=== PATIENT | female | born 1960 | race Two or more races ===

== ENCOUNTER 2017-12-27 05:46 | Inpatient (IN) | payer SELFPAY ==
[~2017-12-27] VITALS: Ht 149.9 cm; Wt 56.4 kg
[2017-12-27] MEDS ORDERED: GLUCOPHAGE500 MG PO (09:49)
[2017-12-27 09:55] VITALS: BP 142/79; BMI 24.5
[2017-12-27 11:33] LABS: BASOPHILS 0.7 % (0-2); EOSINOPHILS 18.7 % (0-7); HEMATOCRIT 30.7 % (36.0-48.0); HEMOGLOBIN 10.6 g/dL (12-16); IMMATURE GRANULOCYTES 0.1 % (0-5); LYMPHOCYTES 25.4 % (15-50); MCH 27.7 pg (26.0-34.0); MCHC 34.5 g/dL (31.0-37.0); MCV 80.4 fL (80.0-100.0); MEAN PLATELET VOLUME 11.1 fL (7.4-10.4); MONOCYTES 3.7 % (2-11); NEUTROPHILS 51.4 % (40-80); PLATELET COUNT 161 10x3/uL (130-400); RBC 3.82 10x6/uL (4.00-5.40); WBC 6.8 10x3/uL (4.8-10.8)
[2017-12-27 11:43] VITALS: BP 162/82
[2017-12-27 11:45] LABS: ALBUMIN 2.2 g/dL (3.4-5.0); ALKALINE PHOSPHATASE 130 U/L (46-116); ALT (SGPT) 16 U/L (10-68); CALC OSMOLALITY 295 mosm/kg (275-300); CALCIUM 8.6 mg/dL (8.5-10.1); CARBON DIOXIDE 27.8 mmol/L (21.0-32.0); CHLORIDE - SERUM 106 mmol/L (98-107); CREATININE - SERUM 1.2 mg/dL (0.6-1.3); GLUCOSE 334 mg/dL (74-106); SODIUM 140 mmol/L (136-145); UREA NITROGEN 24 mg/dL (7-18); eGFR NON AFRICAN AMERICAN 49 mL/min (90-120)
[2017-12-27 12:00] LABS: CHOL - HDL RATIO 5.5 ratio (2.3-4.1); CHOLESTEROL, TOTAL 306 mg/dL (0-200); CKMB 1.6 U/L (0.0-3.6); CREATINE KINASE 45 UL (21-215); HDL CHOLESTEROL 56 mg/dL (32-96); LDL CHOLESTEROL 196 mg/dL (0-100); LDL-HDL RATIO 3.5 ratio (1.5-3.5); MAGNESIUM - SERUM 1.9 mg/dL (1.8-2.4); TRIGLYCERIDE 274 mg/dL (30-200)
[2017-12-27 13:50] LABS: % SATURATION 17 % (15-55); IRON 40 ug/dl (35-150); TOTAL IRON BIND CAPACITY 223 ug/dl (260-445); UNSAT IRON BIND CAPACITY 183 ug/dl (150-375)
[2017-12-27 15:17] VITALS: BP 145/66
[2017-12-27 16:05] LABS: APPEARANCE HAZY (CLEAR); BILIRUBIN NEGATIVE (NEGATIVE); COLOR YELLOW (YELLOW); GLUCOSE 1000 mg/dL (NEGATIVE); KETONE NEGATIVE (NEGATIVE); NITRITE POSITIVE (NEGATIVE); PROTEIN 3+ mg/dL (NEGATIVE); SPECIFIC GRAVITY 1.005 (1.005-1.020); UROBILINOGEN NORMAL (NORMAL)
[2017-12-27 16:08] LABS: CREATININE - URINE 43.7 mg/dL (30-125)
[2017-12-27 16:16] LABS: RED CELLS - URINE RARE /hpf (0-5); WHITE CELLS - URINE 0-5 /hpf (0-5)
[2017-12-27 16:17] LABS: BACTERIA MANY /hpf (NONE SEEN); EPITHELIAL CELLS 0-5 /hpf (0-5); TRIPLE PHOSPHATE CRYSTALS 0-5 /hpf (NONE SEEN)
[2017-12-27 17:22] LABS: CREATINE KINASE 42 UL (21-215)
[2017-12-27 17:23] LABS: TROPONIN-I 0.103 ng/mL (0.000-0.060)
[2017-12-27 20:00] VITALS: BP 101/55
[2017-12-27 23:45] LABS: CKMB 1.2 U/L (0.0-3.6); CREATINE KINASE 41 UL (21-215); TROPONIN-I 0.118 ng/mL (0.000-0.060)
[2017-12-28] VITALS: BP 92/38
[2017-12-28 04:00] VITALS: BP 101/56
[2017-12-28 06:41] LABS: BASOPHILS 1.2 % (0-2); EOSINOPHILS 14.9 % (0-7); HEMATOCRIT 30.1 % (36.0-48.0); HEMOGLOBIN 9.9 g/dL (12-16); IMMATURE GRANULOCYTES 0.1 % (0-5); MCH 27.3 pg (26.0-34.0); MCHC 32.9 g/dL (31.0-37.0); MCV 82.9 fL (80.0-100.0); MEAN PLATELET VOLUME 10.9 fL (7.4-10.4); MONOCYTES 5.8 % (2-11); PLATELET COUNT 157 10x3/uL (130-400); RBC 3.63 10x6/uL (4.00-5.40); RDW 14.2 % (11.5-14.5); WBC 6.9 10x3/uL (4.8-10.8)
[2017-12-28 07:03] LABS: ANION GAP 12.3 mmol/L (8-16); CALCIUM 8.5 mg/dL (8.5-10.1); CARBON DIOXIDE 25.3 mmol/L (21.0-32.0); POTASSIUM - SERUM 4.6 mmol/L (3.5-5.1)
[2017-12-28 07:04] LABS: CREATININE - SERUM 1.6 mg/dL (0.6-1.3)
[2017-12-28 08:44] VITALS: BP 112/61
[2017-12-28 11:42] VITALS: BP 145/71
[2017-12-28 15:23] VITALS: BP 164/65
[2017-12-28 20:00] VITALS: BP 132/55
[2017-12-29 04:00] VITALS: BP 148/74
[2017-12-29 06:22] LABS: BASOPHILS 1.2 % (0-2); HEMOGLOBIN 9.8 g/dL (12-16); IMMATURE GRANULOCYTES 0.3 % (0-5); LYMPHOCYTES 26.3 % (15-50); MCH 27.1 pg (26.0-34.0); MCHC 32.7 g/dL (31.0-37.0); MCV 83.1 fL (80.0-100.0); MEAN PLATELET VOLUME 10.7 fL (7.4-10.4); MONOCYTES 6.9 % (2-11); NEUTROPHILS 44.3 % (40-80); PLATELET COUNT 143 10x3/uL (130-400); RBC 3.61 10x6/uL (4.00-5.40); RDW 14.2 % (11.5-14.5); WBC 6.7 10x3/uL (4.8-10.8)
[2017-12-29 06:31] LABS: CALCIUM 8.4 mg/dL (8.5-10.1); CARBON DIOXIDE 27.1 mmol/L (21.0-32.0); CREATININE - SERUM 1.2 mg/dL (0.6-1.3); POTASSIUM - SERUM 4.1 mmol/L (3.5-5.1)
[2017-12-29 08:19] VITALS: BP 116/65
[2017-12-29 10:50] VITALS: BMI 24.4
[2017-12-29 12:00] VITALS: BP 141/74
[2017-12-29 15:00] VITALS: BP 117/62
[2017-12-29 18:46] VITALS: Ht 149.9 cm; Wt 56.4 kg
[2017-12-29 20:50] VITALS: BP 124/71
[2017-12-30 01:02] VITALS: BP 114/55
[2017-12-30 05:28] LABS: BASOPHILS 1.2 % (0-2); EOSINOPHILS 17.8 % (0-7); HEMATOCRIT 29.7 % (36.0-48.0); HEMOGLOBIN 9.6 g/dL (12-16); IMMATURE GRANULOCYTES 0.2 % (0-5); LYMPHOCYTES 26.6 % (15-50); MCH 27.1 pg (26.0-34.0); MCHC 32.3 g/dL (31.0-37.0); MCV 83.9 fL (80.0-100.0); MEAN PLATELET VOLUME 11.1 fL (7.4-10.4); MONOCYTES 7.7 % (2-11); NEUTROPHILS 46.5 % (40-80); PLATELET COUNT 138 10x3/uL (130-400); RBC 3.54 10x6/uL (4.00-5.40); RDW 14.1 % (11.5-14.5); WBC 6.6 10x3/uL (4.8-10.8)
[2017-12-30 05:30] VITALS: BP 94/66
[2017-12-30 05:41] LABS: APTT 30.9 SECONDS (22.8-39.4); INR 1.06 (0.85-1.17); PROTIME 13.4 SECONDS (11.6-15.0)
[2017-12-30 05:50] LABS: ANION GAP 11.6 mmol/L (8-16); BILIRUBIN - DIRECT 0.03 mg/dL (0.00-0.30); BILIRUBIN - INDIRECT 0.1 mg/dL (0.00-1.00); BILIRUBIN - TOTAL 0.13 mg/dL (0.2-1.3); CALCIUM 8.6 mg/dL (8.5-10.1); CARBON DIOXIDE 27.5 mmol/L (21.0-32.0); CREATININE - SERUM 1.5 mg/dL (0.6-1.3); POTASSIUM - SERUM 4.1 mmol/L (3.5-5.1); PROTEIN - SERUM 5.6 g/dL (6.4-8.2)
[2017-12-30 07:43] VITALS: BP 118/72
[2017-12-30 08:19] LABS: FOLATE (FOLIC ACID) - SERUM >20.0 ng/mL (>3.0)
[2017-12-30 15:50] VITALS: BP 109/66
[2017-12-30 20:00] VITALS: BP 154/73
== END 2017-12-30 21:40 | disposition left against medical advice (07) | DRG 699 ==
LOC: D.M2 05:46
PROVIDERS: Internal Medicine Gastroenterology; Internal Medicine Nephrology
PROC: 0DB78ZX Excision of Stomach, Pylorus, Via Natural or Artificial Opening Endoscopic, Diagnostic (ICD-10-PCS; 2017-12-30)
PROC: 0DB98ZX Excision of Duodenum, Via Natural or Artificial Opening Endoscopic, Diagnostic (ICD-10-PCS; principal; 2017-12-30 05:42)
DX: E11.21 Type 2 diabetes mellitus with diabetic nephropathy (principal); K92.2 Gastrointestinal hemorrhage, unspecified; N39.0 Urinary tract infection, site not specified; I08.2 Rheumatic disorders of both aortic and tricuspid valves; E11.22 Type 2 diabetes mellitus with diabetic chronic kidney disease; I12.9 Hypertensive chronic kidney disease with stage 1 through stage 4 chronic kidney disease, or unspecified chronic kidney disease; N18.3 Chronic kidney disease, stage 3 (moderate); F41.9 Anxiety disorder, unspecified; D50.9 Iron deficiency anemia, unspecified; E88.09 Other disorders of plasma-protein metabolism, not elsewhere classified; K44.9 Diaphragmatic hernia without obstruction or gangrene; K29.70 Gastritis, unspecified, without bleeding; E11.43 Type 2 diabetes mellitus with diabetic autonomic (poly)neuropathy; K31.84 Gastroparesis; E11.65 Type 2 diabetes mellitus with hyperglycemia

== ENCOUNTER 2018-12-10 02:20 | Inpatient (IN) | payer SELFPAY ==
[2018-12-10] VITALS (21 sets, daily range): BP systolic 75–190; BP diastolic 43–97; BMI 24.5; BMI 24.4
[~2018-12-10 02:20] MED LIST: GLUCOPHAGE500 MG PO
[2018-12-10 03:37] LABS: BASOPHILS 0.4 % (0-2); EOSINOPHILS 1.4 % (0-7); HEMATOCRIT 30.4 % (36.0-48.0); HEMOGLOBIN 10.4 g/dL (12-16); IMMATURE GRANULOCYTES 0.1 % (0-5); LYMPHOCYTES 12.4 % (15-50); MCHC 34.2 g/dL (31.0-37.0); MEAN PLATELET VOLUME 11.1 fL (7.4-10.4); MONOCYTES 4.4 % (2-11); NEUTROPHILS 81.3 % (40-80); PLATELET COUNT 140 10x3/uL (130-400); RBC 3.85 10x6/uL (4.00-5.40); RDW 13.8 % (11.5-14.5); WBC 9.5 10x3/uL (4.8-10.8)
--- NOTE | 2018-12-10 03:45 | NUR ---
BS 491
--- NOTE | 2018-12-10 04:05 | NUR ---
RECEIVED PT FROM THE ER VIA STRETCHER INTUBATED AND BILATERAL WRIST RESTRIANTS IN PLACE TO ROOM 2312. PT ATTACHED TO MONITORS. ADMISSION ASSESSMENT COMPLETED, SEE FLOWSHEET. ADMISSION QUESTIONS ANSWERED WITH THE HELP OF FAMILY. ACCORDING TO DAUGHTER PT HAS BEEN FEELING FINE THE PAST FEW DAYS, AND THEN WHEN SHE GOT HOME SHE FOUND HER MOM UNRESPONSIVE ON THE FLOOR AT HOME. NO FURTHER NEEDS NOTED AT THIS TIME. WILL CONTINUE TO MONITOR.
[2018-12-10 04:09] LABS: ALBUMIN 2.4 g/dL (3.4-5.0); BILIRUBIN - TOTAL 0.33 mg/dL (0.2-1.3); CALCIUM 8.6 mg/dL (8.5-10.1); CARBON DIOXIDE 21.9 mmol/L (21.0-32.0); CREATININE - SERUM 1.9 mg/dL (0.6-1.3); POTASSIUM - SERUM 3.9 mmol/L (3.5-5.1); PROTEIN - SERUM 6.9 g/dL (6.4-8.2)
[2018-12-10 04:14] LABS: TROPONIN-I 0.837 ng/mL (0.000-0.060)
--- NOTE | 2018-12-10 07:15 | NUR ---
REPORT RECEIVED. PT ON VENT. SETTING PER RT. LEFT PUPIL NONREACTIVE. RIGHT PUPIL SLUGGISH. PT IN FOR SUBDURAL HEMATOMA. PT HAS IV IN LEFT AC AND IN RIGHT AC. FLUIDS PER FLOWSHEET. HEAD TO TOE ASSESSMENT COMPLETED. SINGH IN PLACE. SCAB TO RIGHT LOWER LEG. SCARS TO LEFT LOWER LEG. VSS. WILL CONTINUE TO MONITOR.
[2018-12-10 08:55] LABS: KETONE - SERUM NEGATIVE (NEGATIVE)
[2018-12-10 09:01] LABS: INR 1.08 (0.85-1.17); PROTIME 13.5 SECONDS (11.6-15.0)
[2018-12-10 09:02] LABS: APTT 25.9 SECONDS (22.8-39.4)
[2018-12-10 09:06] LABS: % SATURATION 16 % (15-55); IRON 37 ug/dl (35-150); TOTAL IRON BIND CAPACITY 220 ug/dl (260-445); UNSAT IRON BIND CAPACITY 183 ug/dl (150-375)
[2018-12-10 09:23] LABS: CKMB 1.2 U/L (0.0-3.6); CREATINE KINASE 44 UL (21-215); FERRITIN 24 ng/mL (3-244); MAGNESIUM - SERUM 1.9 mg/dL (1.8-2.4)
[2018-12-10 09:25] LABS: TROPONIN-I 0.695 ng/mL (0.000-0.060)
--- NOTE | 2018-12-10 09:30 | NUR ---
PT REPOSITIONED. VSS. SUCTIONED. WILL CONTINUE TO MONITOR.
--- NOTE | 2018-12-10 10:02 | NUR ---
BS CHECKED. 216. PT REPOSITIONED. VSS.
--- NOTE | 2018-12-10 12:52 | NUR ---
OGT INSERTED. HOOKED UP TO LIS.
--- NOTE | 2018-12-10 13:45 | NUR ---
INSULIN DRIP STOPPED. PUT ON HIGH DOSE SLIDING SCALE. DAUGHTER AT BEDSIDE. QUESTIONS ANSWERED. LOW BP. BOLUS INFUSING PER DOCTOR ORDER.
[2018-12-10 14:35] LABS: CKMB 0.7 U/L (0.0-3.6); CREATINE KINASE 33 UL (21-215)
[2018-12-10 14:36] LABS: TROPONIN-I 0.525 ng/mL (0.000-0.060)
--- NOTE | 2018-12-10 15:55 | NUR ---
GIVING LITER BOLUS OF NS PER DR PACE BEFORE PT GOES TO GET CTA.
--- NOTE | 2018-12-10 16:42 | NUR ---
PT OPENED EYES SPONTANEOUSLY WHILE IN ROOM CLAMPING FRANCISCO. EYES ABOUT TO TRACK ME. PT ABLE TO SQUEEZE BOTH HANDS WITH EQUAL HOTEL ASSISTANT GENERAL MANAGER. WILL CONTINUE TO MONITOR.
--- NOTE | 2018-12-10 17:53 | NUR ---
PT RETURNED FROM CTA. VSS. DAUGHTER AT BEDSIDE. PROPOFOL INCREASED TO 30MCG/HR. WAS TRYING TO MOVE AROUND DURING CTA. UA COLLECTED. WILL SEND TO LAB. WILL CONTINUE TO MONITOR.
--- NOTE | 2018-12-10 18:34 | NUR ---
SCDS APPLIED TO BLE.
--- NOTE | 2018-12-10 19:01 | MORECARE ---
CASE MANAGEMENT DISCHARGE SUMMARY PATIENT: TORO KEVIN UNIT: [id number] ADM DATE: 12/10/18 AGE: 58 : 64 SEX: F ROOM/BED: D.2312 AUTHOR: TAMY CRUZ PHYSICIAN: REFERRING PHYSICIAN: SANDEEP MARIN MD DATE OF SERVICE: 12/10/18 Discharge Plan Patient Name: TORO KEVIN [facility] [facility] 1960 Planned Disposition: Anticipated Discharge Date: Discharge Date: Expected LOS: Initial Reviewer: [email or web address] Initial Review Date: 12/10/2018 Generated: 12/10/18 8:01 pm DCPIA - Discharge Planning Initial Assessment Updated by [email or web address]: Jayne Chavez on 12/10/18 7:00 pm * How many steps to enter\exit or inside your home? * PCP NO PCP * Pharmacy NONE * Preadmission Environment Home with Family * ADLs Independent * Equipment None * List name and contact numbers for known caregivers / representatives who currently or will assist patient after discharge: MILO KEVIN [facility]- [phone] [facility] - [phone] * Verbal permission to speak to the caregivers and representatives has been obtained from the patient. N/A * Community resources currently utilized None * Additional services required to return to the preadmission environment? No * Can the patient safely return to the preadmission environment? Yes * Has this patient been hospitalized within the prior 30 days at any hospital? No Patient Name: TORO KEVIN Page [id number] at 1901 All edits/amendments must be made on the electronic document DICTATION DATE: 12/10/181899 BEAD STRINGER: CHRISTOPHER 12/10/181899 RPT#: [id number] DC DATE: STATUS: ADM IN [facility] [address] [place] [address] END OF REPORT
--- NOTE | 2018-12-10 19:09 | MORECARE ---
CASE MANAGEMENT DISCHARGE SUMMARY PATIENT: TORO KEVIN UNIT: [id number] ADM DATE: 12/10/18 AGE: 58 : 64 SEX: F ROOM/BED: D.2312 AUTHOR: NANCYDOC PHYSICIAN: REFERRING PHYSICIAN: SANDEEP MARIN MD DATE OF SERVICE: 12/10/18 Discharge Plan Patient Name: TORO KEVIN Facility: [facility]:[place] : 1960 Planned Disposition: Anticipated Discharge Date: Discharge Date: Expected LOS: Initial Reviewer: [email or web address] Initial Review Date: 12/10/2018 Generated: 12/10/18 8:08 pm Comments DCP- Discharge Planning Updated by [email or web address]: Jayne Chavez on 12/10/18 6:[address] Patient Name: TORO KEVIN Admission Status: ER Accout number: [id number] Admission Date: 12-10-2018 : 1960 Admission Diagnosis:TRAUM SUBDR HEM W LOC OF UNSP DURATION, INIT Attending: SANDEEP MARIN Current LOS: 1 Anticipated DC Date: Planned Disposition: Primary Insurance: UNINSURED DISCOUNT PLAN Discharge Planning Comments: CM met with patient's daughter Antione since patient is currently on vent sedated. Patient lives at home with her daughter Antione. Antione hopes that patient will be able to return there upon discharge. Patient doesn't have any medical equipment at home. Patient doesn't have a PCP or Pharmacy that she uses. She doesn't have any medical insurance coverage. Antione uncertain of any discharge needs at this time. CM will continue to follow and assist as needed with discharge planning / needs. Java Architect: Jayne Chavez DCPIA - Discharge Planning Initial Assessment Updated by [email or web address]: Jayne Chavez on 12/10/18 7:00 pm * How many steps to enter\exit or inside your home? * PCP NO PCP * Pharmacy NONE * Preadmission Environment Home with Family * ADLs Independent * Equipment None * List name and contact numbers for known caregivers / representatives who currently or will assist patient after discharge: ANTIONE KEVIN - DAUGHTER- [phone] [facility] [phone] * Verbal permission to speak to the caregivers and representatives has been obtained from the patient. N/A * Community resources currently utilized None * Additional services required to return to the preadmission environment? No * Can the patient safely return to the preadmission environment? Yes * Has this patient been hospitalized within the prior 30 days at any hospital? No Last DP export: 12/10/18 6:01 p Patient Name: TORO KEVIN Page [id number] at 1909 All edits/amendments must be made on the electronic document DICTATION DATE: 12/10/181907 GUIDANCE ADVISER: CHRISTOPHER 12/10/181907 RPT#: [id number] DC DATE: STATUS: ADM IN [facility] [address] [place] [address] END OF REPORT
[2018-12-10 19:34] LABS: UDS - AMPHET NEGATIVE QUAL (NEGATIVE); UDS - BARB NEGATIVE QUAL (NEGATIVE); UDS - BENZO NEGATIVE QUAL (NEGATIVE); UDS - COCAINE NEGATIVE QUAL (NEGATIVE); UDS - OPIATE NEGATIVE QUAL (NEGATIVE); UDS - PCP NEGATIVE QUAL (NEGATIVE); UDS - THC NEGATIVE QUAL (NEGATIVE)
[2018-12-10 19:55] LABS: APPEARANCE CLEAR (CLEAR); BILIRUBIN NEGATIVE (NEGATIVE); COLOR STRAW (YELLOW); GLUCOSE 250 mg/dL (NEGATIVE); KETONE NEGATIVE (NEGATIVE); NITRITE NEGATIVE (NEGATIVE); PROTEIN 2+ mg/dL (NEGATIVE); SPECIFIC GRAVITY 1.005 (1.005-1.020); UROBILINOGEN NORMAL (NORMAL)
[2018-12-10 19:56] LABS: BACTERIA MODERATE /hpf (NONE SEEN); EPITHELIAL CELLS 0-5 /hpf (0-5); RED CELLS - URINE 0-5 /hpf (0-5)
[2018-12-10 20:36] LABS: CKMB 1.2 U/L (0.0-3.6); CREATINE KINASE 49 UL (21-215); TROPONIN-I 0.481 ng/mL (0.000-0.060)
[2018-12-11] VITALS (25 sets, daily range): BP systolic 112–190; BP diastolic 60–94
[2018-12-11 03:51] LABS: BASOPHILS 0.3 % (0-2); HEMATOCRIT 26.3 % (36.0-48.0); HEMOGLOBIN 8.8 g/dL (12-16); IMMATURE GRANULOCYTES 0.1 % (0-5); LYMPHOCYTES 14.1 % (15-50); MCH 26.7 pg (26.0-34.0); MCHC 33.5 g/dL (31.0-37.0); MCV 79.9 fL (80.0-100.0); MEAN PLATELET VOLUME 11.5 fL (7.4-10.4); MONOCYTES 8.4 % (2-11); NEUTROPHILS 75.1 % (40-80); RBC 3.29 10x6/uL (4.00-5.40); RDW 14.3 % (11.5-14.5); WBC 9.7 10x3/uL (4.8-10.8)
[2018-12-11 04:03] LABS: ALBUMIN 1.8 g/dL (3.4-5.0); BILIRUBIN - TOTAL 0.27 mg/dL (0.2-1.3); CALCIUM 7.7 mg/dL (8.5-10.1); CARBON DIOXIDE 21.5 mmol/L (21.0-32.0); CREATININE - SERUM 1.5 mg/dL (0.6-1.3); MAGNESIUM - SERUM 1.6 mg/dL (1.8-2.4); PHOSPHOROUS 3.5 mg/dL (2.5-4.9); PROTEIN - SERUM 5.5 g/dL (6.4-8.2)
[2018-12-11 04:05] LABS: POTASSIUM - SERUM 3.1 mmol/L (3.5-5.1)
[2018-12-11 04:06] LABS: ANION GAP 12.6 mmol/L (8-16)
[2018-12-11 04:09] LABS: PLATELET COUNT 108 10x3/uL (130-400)
--- NOTE | 2018-12-11 06:10 | NUR ---
UPON ENTERING ROOM IV WAS PULLED OUT AND LAYING ON TOP OF PATIENT GOWN. DIPRIVAN WAS NOT INFUSING. IV RESTARTED WITH ONE STICK TO R FA WITH 20G IV X1 GOOD BLOOD RETURN NOTED AND FLUSHED EASILY. LINEN CHANGED AND SINGH CARE DONE. DIPRIVAN RESTARTED DUE TO ELEVATED BP. PATIENT IS ALERT AND FOLLOWS COMMANDS, TRACKS WITH EYES, AND RECOGNIZES DAUGHTER.
--- NOTE | 2018-12-11 07:30 | NUR ---
REPORT RECEIVED. NEURO CHECK DONE. HEAD TO TOE ASSESSMENT DONE. IVS TO RIGHT AC AND LEFT AC. IV FLUIDS PER FLOWSHEET. PT HAS FRANCISCO. SCDS ON. PT ON VENT. PER RT SETTINGS. DAUGHTER AT BEDSIDE. WILL CONTINUE TO MONITOR.
--- NOTE | 2018-12-11 09:15 | NUR ---
PT PASSING GAS. NO BM. VSS. SEDATED. WILL AROUSE AND FOLLOW COMMANDS. REPOSITIONED. WILL CONTINUE TO MONITOR.
[2018-12-11 10:15] LABS: FOLATE (FOLIC ACID) - SERUM >20.0 ng/mL (>3.0)
--- NOTE | 2018-12-11 13:37 | NUR ---
SEDATION IS OFF. PT RESTING QUIETLY. ON CPAP TRIAL PER RESP. WILL CONTINUE TO MONITOR. VSS.
--- NOTE | 2018-12-11 14:56 | NUR ---
PT EXTUBATED PER RT. DOESN'T UNDERSTAND HAITIAN. HAVE NOTIFIED DAUGHTER, JOSE DE JESUS, THAT SHE IS OFF OF VENT. VSS. WILL CONTINUE TO MONITOR.
--- NOTE | 2018-12-11 16:17 | NUR ---
CARDIZEM DRIP INITIATED PER DR'S ORDERS. BP 178/94 AND HR 126. O2 AT 3L AT 99%. PT RESTING QUIETLY WITH NO DISTRESS NOTED.
--- NOTE | 2018-12-11 17:48 | NUR ---
BS 242 COVERED. VSS. POTASSIUM BEING REPLACED. NO NEEDS AT THIS TIME. WILL CONTINUE TO MONITOR.
--- NOTE | 2018-12-11 18:39 | NUR ---
PT HAD LARGE BM. SOFT AND FORMED. PT ABLE TO ROLL AND FOLLOW COMMANDS. VSS. WILL CONTINUE TO MONITOR.
--- NOTE | 2018-12-11 19:20 | NUR ---
PATIENT FAMILY AT BEDSIDE, C/O HEADACHE. SINUS TACH AND ELEVATED SYSTOLIC BP NOTED AT THIS TIME, PATIENT ON CARDIZEM GTT. TEMP ELEVATED 100.7 - SHIFT ASSESSMENT COMPLETED SEE FLOWSHEET. VSS CPOC
--- NOTE | 2018-12-11 20:59 | NUR ---
BED CHAGE PERFORMED AT FAMILY REQUEST. NO BM OR INCONTINENT EPISODE NOTED AT THIS TIME.
--- NOTE | 2018-12-11 22:57 | NUR ---
REASSESSMENT COMPLETED SEE FLOWSHEET
[2018-12-12] VITALS (26 sets, daily range): BP systolic 112–163; BP diastolic 57–76
--- NOTE | 2018-12-12 01:31 | NUR ---
PT RESTING COMFORTABLY, POTASSIUM CHLORIDE RIDER INITIATED AT THIS TIME, VSS CPOC
--- NOTE | 2018-12-12 03:14 | NUR ---
REASSESSMENT COMPLETED SEE FLOWSHEET
--- NOTE | 2018-12-12 05:30 | NUR ---
PATIENT RESTING COMFORTABLY FAMILY AT BEDSIDE VSS CPOC
--- NOTE | 2018-12-12 08:24 | NUR ---
LYING IN BED WITH EYES CLOSED AT THIS TIME. NO ACUTE DISTRESS NOTED. PT RESPIRATIONS STEADY AND UNLABORED. AWAKENS EASILY WHEN SPOKEN TO. PT NOTED ONLY SPEAKS KYRGYZ, HOWEVER PT WAS ABLE TO ACKNOWLEDGE THAT SHE IS "OKAY." NO ACUTE DISTRESS NOTED. SEE SHIFT ASSESSMENT FOR FURTHER INFORMATION. WILL CONTINUE PLAN OF CARE.
[2018-12-12 08:48] LABS: BASOPHILS 0.3 % (0-2); EOSINOPHILS 3.6 % (0-7); HEMATOCRIT 24.1 % (36.0-48.0); IMMATURE GRANULOCYTES 0.2 % (0-5); LYMPHOCYTES 9.7 % (15-50); MCH 26.8 pg (26.0-34.0); MCHC 33.2 g/dL (31.0-37.0); MCV 80.9 fL (80.0-100.0); MEAN PLATELET VOLUME 10.8 fL (7.4-10.4); MONOCYTES 5.3 % (2-11); NEUTROPHILS 80.9 % (40-80); PLATELET COUNT 98 10x3/uL (130-400); RBC 2.98 10x6/uL (4.00-5.40); RDW 14.7 % (11.5-14.5); WBC 11.5 10x3/uL (4.8-10.8)
[2018-12-12 09:08] LABS: ALBUMIN 1.6 g/dL (3.4-5.0); BILIRUBIN - TOTAL 0.43 mg/dL (0.2-1.3); CALCIUM 7.7 mg/dL (8.5-10.1); CARBON DIOXIDE 16.5 mmol/L (21.0-32.0); CREATININE - SERUM 1.4 mg/dL (0.6-1.3); PROTEIN - SERUM 5.6 g/dL (6.4-8.2)
[2018-12-12 09:10] LABS: ANION GAP 16.6 mmol/L (8-16); PLATELET ESTIMATE DECREASED; POTASSIUM - SERUM 4.1 mmol/L (3.5-5.1)
--- NOTE | 2018-12-12 10:07 | NUR ---
BED BATH GIVEN AT THIS TIME USING HIBICLENS. TOTAL LINEN CHANGE ALSO GIVEN. NO ACUTE DISTRESS NOTED. SINGH CARE PROVIDED. CHENG CARE. PROVIDED. WILL CONTINUE PLAN OF CARE.
--- NOTE | 2018-12-12 12:51 | NUR ---
PER DR MARIN INCREASE CARDIZEM GTT TO 10MG/HR, DECREASE SLIDING SCALE RESISTANCE FROM HIGH TO LOW RESISTANCE, PRN TYLENOL 650 FOR PAIN/FEVER Q6H PRN. NO ACUTE DISTRESS NOTED. WILL CONTINUE PLAN OF CARE.
--- NOTE | 2018-12-12 14:05 | NUR ---
NO ACUTE DISTRESS NOTED. VSS. CALL LIGHT IN REACH. PT RESTING, AWAKENS WHEN SPOKEN TO. FOLLOWS COMMANDS. NO CHANGE. WILL CONTINUE PLAN OF CARE.
--- NOTE | 2018-12-12 16:04 | NUR ---
SPOKE WITH PTS CHILDREN, UPDATES PROVIDED. NO ACUTE DISTRESS NOTED. PER PTS SON, HE WILL BE HERE LATER TOMORROW. WILL CONTINUE PLAN OF CARE.
--- NOTE | 2018-12-12 17:28 | NUR ---
PT TOLERATED THIN WATER WELL AT THIS TIME WITHOUT ANY S/S OF ASPIRATION. PT ALSO TOLERATED APPLESAUCE WELL WITHOUT S/S APIRATION. ALSO NOTED RT AC SITE TO LEAK WHEN FLUSHING THEREFORE DC, CATHETER TIP INTACT. IV RECITED TO LT FOREARM X 2 ATTEMPT, 20G, FLUSHES WELL. WILL CONTINUE PLAN OF CARE.
--- NOTE | 2018-12-12 19:10 | NUR ---
SHIFT ASSESSMENT COMPLETED SEE FLOWSHEET. VSS CPOC - MINIMAL ASSIST REPOSITION FOR COMFORT PER REQUEST. DENIES FURTHER NEEDS WILL CONTINUE TO MONITOR
--- NOTE | 2018-12-12 21:15 | NUR ---
PT RESTING COMFORTABLY, NO APPARENT DISTRESS VSS CPOC
--- NOTE | 2018-12-12 23:30 | NUR ---
REASSESSMENT COMPLETED SEE FLOWSHEET
[2018-12-13] VITALS (18 sets, daily range): BP systolic 122–176; BP diastolic 51–99
--- NOTE | 2018-12-13 00:39 | NUR ---
PT RESTING COMFORTABLY EVEN RISE AND FALL OF CHEST, NO APPARENT DISTRESS VSS CPOC
[2018-12-13 03:27] LABS: BASOPHILS 0.3 % (0-2); EOSINOPHILS 6.9 % (0-7); HEMATOCRIT 27.2 % (36.0-48.0); HEMOGLOBIN 9.2 g/dL (12-16); IMMATURE GRANULOCYTES 0.3 % (0-5); LYMPHOCYTES 8.9 % (15-50); MCH 27.1 pg (26.0-34.0); MCHC 33.8 g/dL (31.0-37.0); MEAN PLATELET VOLUME 11.1 fL (7.4-10.4); MONOCYTES 7.3 % (2-11); NEUTROPHILS 76.3 % (40-80); PLATELET COUNT 111 10x3/uL (130-400); RDW 14.1 % (11.5-14.5); WBC 10.8 10x3/uL (4.8-10.8)
--- NOTE | 2018-12-13 03:37 | NUR ---
REASSESSMENT COMPLETED SEE FLOWSHEET
[2018-12-13 03:45] LABS: ANION GAP 13.7 mmol/L (8-16); CALCIUM 7.8 mg/dL (8.5-10.1); CREATININE - SERUM 1.5 mg/dL (0.6-1.3); POTASSIUM - SERUM 3.5 mmol/L (3.5-5.1)
[2018-12-13 03:48] LABS: CARBON DIOXIDE 20.8 mmol/L (21.0-32.0)
--- NOTE | 2018-12-13 08:36 | NUR ---
UP IN BED AWAKE AT THIS TIME. DENIES ANY NEEDS. NO ACUTE DISTRESS NOTED. VSS. WILL CONTINUE PLAN OF CARE.
--- NOTE | 2018-12-13 10:36 | NUR ---
CONTINENT BOWEL MOVEMENT AT THIS TIME NOTED. LINEN CHNAGE PROVIDED. CHENG CARE AND SINGH CARE PROVIDED USING HIBICLENS. NO ACUTE DISTRESS NOTED. WILL CONTINUE PLAN OF CAR.E
--- NOTE | 2018-12-13 12:37 | NUR ---
EATING LUNCH AT THIS TIME. FAMILY AT BEDSIDE. UPDATES PROVIDED. NO ACUTE DISTRESS NOTED. WILL CONTINUE PLAN OF CARE.
--- NOTE | 2018-12-13 14:38 | NUR ---
PER DR MARIN, DC CARDIZEM GTT 30 MIN AFTER PO CARDIZEM ADMIN. ALSO ORDERED REPEAT CT FOR FOLLOWUP. NO ACUTE DISTRESS NOTED. WILL CONTINUE PLAN OF CAR.E
--- NOTE | 2018-12-13 16:39 | NUR ---
UP IN BED ON CELLPHONE AT THIS TIME. NO ACUTE DISTRESS NOTED. CALL LIGHT IN REACH. WILL CONTINUE PLAN OF CARE.
--- NOTE | 2018-12-13 18:25 | NUR ---
UP IN BED AWAKE AT THIS TIME. DENIES ANY NEEDS. WILL CONTINUE PLAN OF CARE.
[2018-12-14] VITALS (8 sets, daily range): BP systolic 153–188; BP diastolic 67–98
--- NOTE | 2018-12-14 03:30 | NUR ---
PT SITTING UP IN BED AWAKE AND ALERT, DENIES ANY NEEDS AT THIS TIME, VSS.
--- NOTE | 2018-12-14 07:00 | NUR ---
EEC'D EPORT AND RESUMED CARE, SLEEPING, AROUSED TO VERBAL STIMULI, SPEAKING, TRANSLATION VIA PHONE, DENIES PAIN, ASSESSMENT COMPLTED PER FLOWSHEET, NO NEEDS AT THIS TIME, CALL LIGHT IN REACH.
--- NOTE | 2018-12-14 08:41 | NUR ---
BREACKFAST TRAY TO BEDSIDE, INDEPENDENT WITH SET UPA AND EATING
--- NOTE | 2018-12-14 09:45 | NUR ---
NUTRITION F/U CHART REVIEWED. PT TOLERATING REG DIABETIC DIET. WILL CONTINUE TO PROVIDE DIET, MONITOR PO INTAKE. RD FOLLOWING
--- NOTE | 2018-12-14 15:03 | NUR ---
BP 180/92, DR GANN HERE FOR EVAL, NEW ORDER GIVEN FOR HYDRALIZINE 5MG IVP, GIVEN PER ORDER
[2018-12-15 04:00] VITALS: BP 168/84
[2018-12-15 05:28] LABS: BASOPHILS 0 % (0-2); EOSINOPHILS 0 % (0-7); HEMATOCRIT 30.1 % (36.0-48.0); HEMOGLOBIN 10.3 g/dL (12-16); IMMATURE GRANULOCYTES 0.7 % (0-5); LYMPHOCYTES 10.8 % (15-50); MCHC 34.2 g/dL (31.0-37.0); MCV 78.8 fL (80.0-100.0); MEAN PLATELET VOLUME 10.1 fL (7.4-10.4); MONOCYTES 3.6 % (2-11); NEUTROPHILS 84.9 % (40-80); RBC 3.82 10x6/uL (4.00-5.40); RDW 13.2 % (11.5-14.5); WBC 5.4 10x3/uL (4.8-10.8)
[2018-12-15 05:43] LABS: PLATELET COUNT 166 10x3/uL (130-400)
[2018-12-15 06:12] LABS: ALBUMIN 1.7 g/dL (3.4-5.0); ANION GAP 7.1 mmol/L (8-16); BILIRUBIN - TOTAL 0.19 mg/dL (0.2-1.3); CALCIUM 7.9 mg/dL (8.5-10.1); CARBON DIOXIDE 34.1 mmol/L (21.0-32.0); CREATININE - SERUM 1.7 mg/dL (0.6-1.3); POTASSIUM - SERUM 3.2 mmol/L (3.5-5.1); PROTEIN - SERUM 5.4 g/dL (6.4-8.2)
--- NOTE | 2018-12-15 07:11 | NUR ---
I have reviewed this patient and I concur with the Shift Assessment completed by the Licensed Practical Nurse today this shift.
--- NOTE | 2018-12-15 08:10 | NUR ---
AWAKE AND ALERT. ORIENTED X3 WITH SOME CONFUSION AT TIMES. WANTS SINGH OUT. WILL ASK MD. LUNGS ARE CLEAR BILATERALLY, NO COUGH NOTED. SKIN IS INTACT WITHOUT REDNESS. IV TO LEFT FOREARM IS PATENT WITHOUT REDNESS AT INSERTION SITE. DENIES NEEDS. SINGH PATENT WITH CLEAR YELLOW URINE.
[2018-12-15 09:14] VITALS: BP 154/64
--- NOTE | 2018-12-15 09:50 | NUR ---
SPOKE WITH TANYA SINGH, OK IF OK WITH DR. BARRY. SPOKE WITH DR. BARRY AND HE IS OK WITH REMOVING THE FRANCISCO.
--- NOTE | 2018-12-15 10:28 | NUR ---
SINGH D/C WITH TIP INTACT WITHOUT DIFFICULTY. PATIENT VERY HAPPY TO HAVE IT OUT.
--- NOTE | 2018-12-15 12:30 | NUR ---
LUNCH SERVED IN ROOM. ATE MOST OF MEAL. ASSISTED UP TO SHOWER WITH ONE PERSON MIN ASSISST. LINENS CHANGED PER STAFF.
[2018-12-15 13:45] VITALS: BP 159/82
--- NOTE | 2018-12-15 14:28 | NUR ---
RESTING QUIETLY IN BED. FAMILY AT BEDSIDE.
--- NOTE | 2018-12-15 16:27 | NUR ---
IV TO LEFT FOREARM LEAKING. RESITED TO RIGHT FOREARM AFTER ONE ATTEMPT WITH 20G. OLD IV D/C WITH CATHETER INTACT. TOLERATED WELL. FAMILY AT BEDSIDE.
[2018-12-15 16:55] VITALS: BP 172/92
--- NOTE | 2018-12-15 18:59 | NUR ---
ATE MOST OF SUPPER AND SOME FOOD FROM HOME. FSBS 450. DR. GANN NOTIFIED OF SAME. NEW ORDERS RECEIVED. NO CHANGES NOTED. DENIES NEEDS.
[2018-12-15 20:00] VITALS: BP 168/79
[2018-12-16] VITALS: BP 145/62
--- NOTE | 2018-12-16 01:23 | NUR ---
REC'D. AT [facility]. OF SHIFT EYES CLOSED RESP, DEEP AND EVEN.LYING ON LEFT SIDE RESP. DEEP AND EVEN. WILL CONTINUE TO MONITOR FOR ANY CHGES AND FOLLOW CURRENT PLAN OF CARE.
[2018-12-16 04:00] VITALS: BP 139/59
[2018-12-16 06:03] LABS: BASOPHILS 0 % (0-2); EOSINOPHILS 0 % (0-7); HEMATOCRIT 26.9 % (36.0-48.0); HEMOGLOBIN 9.2 g/dL (12-16); IMMATURE GRANULOCYTES 0.6 % (0-5); LYMPHOCYTES 9.1 % (15-50); MCHC 34.2 g/dL (31.0-37.0); MCV 78.9 fL (80.0-100.0); MEAN PLATELET VOLUME 10.2 fL (7.4-10.4); MONOCYTES 5.4 % (2-11); NEUTROPHILS 84.9 % (40-80); RBC 3.41 10x6/uL (4.00-5.40); RDW 13.2 % (11.5-14.5)
[2018-12-16 06:06] LABS: ALBUMIN 1.7 g/dL (3.4-5.0); ANION GAP 8.3 mmol/L (8-16); BILIRUBIN - TOTAL 0.19 mg/dL (0.2-1.3); CALCIUM 7.7 mg/dL (8.5-10.1); CARBON DIOXIDE 32.8 mmol/L (21.0-32.0); CREATININE - SERUM 1.8 mg/dL (0.6-1.3); POTASSIUM - SERUM 3.1 mmol/L (3.5-5.1); PROTEIN - SERUM 5.4 g/dL (6.4-8.2)
[2018-12-16 06:36] LABS: PLATELET COUNT 200 10x3/uL (130-400); WBC 7.8 10x3/uL (4.8-10.8)
--- NOTE | 2018-12-16 06:45 | NUR ---
I have reviewed this patient and I concur with the Shift Assessment completed by the Licensed Practical Nurse today this shift.
--- NOTE | 2018-12-16 08:17 | NUR ---
AWAKE AND ALERT. ORIENTED X3. NO C/O AT THIS TIME. LUNGS ARE CLEAR BILATERALLY, NO COUGH NOTED.SKIN IS INTACT WITHOUT REDNESS. REPORTS VOIDED WITHOUT DIFFICULTY. IV TO RIGHT FOREARM IS PATENT WITHOUT REDNESS AT INSERTION SITE. DENIES NEEDS. BREAKFAST SERVED IN ROOM.
[2018-12-16 09:00] VITALS: BP 151/70
--- NOTE | 2018-12-16 10:00 | NUR ---
SITTING UP ON SIDE OF BED. DENIES NEEDS.
--- NOTE | 2018-12-16 12:00 | NUR ---
FSBS 363. GIVEN 20 UNITS REGULAR SUBQ PER SS.
[2018-12-16 13:14] VITALS: BP 154/72; BP 167/83
[2018-12-16] MEDS ORDERED: CARDIZEM60 MG PO (13:23)
[2018-12-16] MEDS ORDERED: FLORAJEN3 CAPS460 MG PO (13:23)
[2018-12-16] MEDS ORDERED: LANTUS INSULIN10 ML SC (13:24)
[2018-12-16] MEDS ORDERED: LEVOFLOXACIN500 MG PO (13:24)
[2018-12-16] MEDS ORDERED: MACROBID100 MG PO (13:25)
[2018-12-16] MEDS ORDERED: MEDROL DOSE PACK4 MG PO (13:25)
[2018-12-16] MEDS ORDERED: HUMULIN R100 U/ML SC (13:25)
--- NOTE | 2018-12-16 14:55 | MORECARE ---
CASE MANAGEMENT DISCHARGE SUMMARY PATIENT: TORO KEVIN UNIT: [id number] ADM DATE: 12/10/18 AGE: 58 : 64 SEX: F ROOM/BED: D.2203 AUTHOR: NANCY,DOC PHYSICIAN: REFERRING PHYSICIAN: SANDEEP MARIN MD DATE OF SERVICE: 12/16/18 Discharge Plan Patient Name: TORO KEVIN Facility: [facility]:[place] : 1960 Planned Disposition: Anticipated Discharge Date: Discharge Date: Expected LOS: Initial Reviewer: [email or web address] Initial Review Date: 12/10/2018 Generated: 12/16/18 3:55 pm Comments DCP- Discharge Planning Updated by [id number]: Marti Bryson on 12/16/18 1:[address] Patient will be going home with her daughter, they will be traveling to [place] when discharged. She will get her prescriptions filled. I called HIM spoke with Melisa. She stated that we needed to send the patient home with her health summary and to give her the number for HIM, so the MD out of state can call the hospital to get to fax clinicals to them. DCP- Discharge Planning Updated by [email or web address]: Jayne Chavez on 12/10/18 6:[address] Patient Name: TORO KEVIN Admission Status: ER Accout number: [id number] Admission Date: 12-10-2018 : 1960 Admission Diagnosis:TRAUM SUBDR HEM W LOC OF UNSP DURATION, INIT Attending: SANDEEP MARIN Current LOS: 1 Anticipated DC Date: Planned Disposition: Primary Insurance: UNINSURED DISCOUNT PLAN Discharge Planning Comments: CM met with patient's daughter Antione since patient is currently on vent sedated. Patient lives at home with her daughter Antione. Antione hopes that patient will be able to return there upon discharge. Patient doesn't have any medical equipment at home. Patient doesn't have a PCP or Pharmacy that she uses. She doesn't have any medical insurance coverage. Antione uncertain of any discharge needs at this time. CM will continue to follow and assist as needed with discharge planning / needs. Piping Engineer: Jayne Chavez DCPIA - Discharge Planning Initial Assessment Updated by [email or web address]: Jayne Chavez on 12/10/18 7:00 pm * How many steps to enter\exit or inside your home? * PCP NO PCP * Pharmacy NONE * Preadmission Environment Home with Family * ADLs Independent * Equipment None * List name and contact numbers for known caregivers / representatives who currently or will assist patient after discharge: ANTIONE KEVIN - [facility]- [phone] SENTHIL ROSENBERG - [phone] * Verbal permission to speak to the caregivers and representatives has been obtained from the patient. N/A * Community resources currently utilized None * Additional services required to return to the preadmission environment? No * Can the patient safely return to the preadmission environment? Yes * Has this patient been hospitalized within the prior 30 days at any hospital? No Last DP export: 12/10/18 6:09 p Patient Name: TORO KEVIN Page [phone] at 1455 All edits/amendments must be made on the electronic document DICTATION DATE: 12/16/181453 STUDENT WORKER: CHRISTOPHER 12/16/181453 RPT#: [id number] DC DATE: STATUS: ADM IN [facility] [address] [place] [address] END OF REPORT
--- NOTE | 2018-12-16 16:39 | NUR ---
DISCHARGED TO HOME WITH FAMILY AMBULATORY. DISCHARGE INSTRUCTIONS GIVEN BOTH VERBALLY AND WRITTEN. ALL QUESTIONS ANSWERED. PATIENT AND FAMILY VERBALZIED UNDERSTANDING OF SAME. DAUGHTER IN LAW INTERPRETED ALL INFORMATION FOR PATIENT AND SON. IV TO RIGHT FOREARM D/C WITH CATHETER INTACT. NEEDED PRESCRIPTIONS GIVEN TO PATIENT AND ESCRIBED TO PHARMACY OF CHOICE. ALL BELONGINGS WITH PATIENT.
--- NOTE | 2018-12-16 19:26 | NUR ---
OT NOTE: PT COMPLETED BED MOB AND ADL MOB WITH CGA. PT COMPLETED HYGIENE TASKS AT EOB WITH SET UP. THANK YOU, ANGEL OCAMPO
--- NOTE | 2018-12-17 16:49 | MORECARE ---
CASE MANAGEMENT DISCHARGE SUMMARY PATIENT: TORO KEVIN UNIT: [id number] ADM DATE: 12/10/18 AGE: 58 : 64 SEX: F ROOM/BED: D.2203 AUTHOR: NANCY,DOC PHYSICIAN: REFERRING PHYSICIAN: SANDEEP MARIN MD DATE OF SERVICE: 12/17/18 Discharge Plan Patient Name: TORO KEVIN Facility: [facility]:[place] : 1960 Planned Disposition: Anticipated Discharge Date: Discharge Date: 12/16/2018 Expected LOS: 0 Initial Reviewer: [email or web address] Initial Review Date: 12/10/2018 Generated: 12/17/18 5:49 pm Comments DCP- Discharge Planning Updated by [email or web address]: Marti Bryson on 12/16/18 1:[address] Patient will be going home with her daughter, they will be traveling to [place] when discharged. She will get her prescriptions filled. I called HIM spoke with Melisa. She stated that we needed to send the patient home with her health summary and to give her the number for HIM, so the MD out of state can call the hospital to get to fax clinicals to them. DCP- Discharge Planning Updated by [email or web address]: Jayne Chavez on 12/10/18 6:[address] Patient Name: TORO KEVIN Admission Status: ER Accout number: [id number] Admission Date: 12-10-2018 : 1960 Admission Diagnosis:TRAUM SUBDR HEM W LOC OF UNSP DURATION, INIT Attending: SANDEEP MARIN Current LOS: 1 Anticipated DC Date: Planned Disposition: Primary Insurance: UNINSURED DISCOUNT PLAN Discharge Planning Comments: CM met with patient's daughter Antione since patient is currently on vent sedated. Patient lives at home with her daughter Antione. Antione hopes that patient will be able to return there upon discharge. Patient doesn't have any medical equipment at home. Patient doesn't have a PCP or Pharmacy that she uses. She doesn't have any medical insurance coverage. Antione uncertain of any discharge needs at this time. CM will continue to follow and assist as needed with discharge planning / needs. Hand I Thermal Cutter: Jayne Chavez DCPIA - Discharge Planning Initial Assessment Updated by [email or web address]: Jayne Chavez on 12/10/18 7:00 pm * How many steps to enter\exit or inside your home? * PCP NO PCP * Pharmacy NONE * Preadmission Environment Home with Family * ADLs Independent * Equipment None * List name and contact numbers for known caregivers / representatives who currently or will assist patient after discharge: SOTOOVIDIOMARY ANN KEVIN [facility]- [phone] SENTHIL ROSENBERG [phone] * Verbal permission to speak to the caregivers and representatives has been obtained from the patient. N/A * Community resources currently utilized None * Additional services required to return to the preadmission environment? No * Can the patient safely return to the preadmission environment? Yes * Has this patient been hospitalized within the prior 30 days at any hospital? No Last DP export: 12/16/18 1:55 pm Patient Name: TORO KEVIN Page [phone] at 1649 All edits/amendments must be made on the electronic document DICTATION DATE: 12/17/181647 RELEASE ENGINEER: CHRISTOPHER 12/17/181647 RPT#: [id number] DC DATE:12/16/18 STATUS: DIS IN [facility] [address] [place] [address] END OF REPORT
== END 2018-12-16 16:41 | disposition home or self-care (01) | DRG 82 ==
LOC: D.ER 02:20 → D.ICU 02:50 → D.MS 12-14 15:34
PROVIDERS: Family Medicine; Internal Medicine Pulmonary Disease; ADMIT Internal Medicine Nephrology; ATTEND Internal Medicine Nephrology
PROC: 5A1945Z Respiratory Ventilation, 24-96 Consecutive Hours (ICD-10-PCS; principal; 2018-12-10)
DX: S06.5X9A Traumatic subdural hemorrhage with loss of consciousness of unspecified duration, initial encounter (principal); J96.00 Acute respiratory failure, unspecified whether with hypoxia or hypercapnia; G93.41 Metabolic encephalopathy; N39.0 Urinary tract infection, site not specified; R40.2353 Coma scale, best motor response, localizes pain, at hospital admission; R40.2113 Coma scale, eyes open, never, at hospital admission; R40.2213 Coma scale, best verbal response, none, at hospital admission; I10 Essential (primary) hypertension; E11.8 Type 2 diabetes mellitus with unspecified complications; Z91.19 Patient's noncompliance with other medical treatment and regimen